=== PATIENT | female | born 1965 | race Caucasian/White ===

== ENCOUNTER 2016-05-21 15:45 | Emergency (ER) | payer MEDICARE, MEDICAID ==
[~2016-05-21] VITALS: Ht 154.9 cm; Wt 85.7 kg
[~2016-05-21 15:45] MED LIST: AEROSOL THERAPY1 DEV; ALBUTEROL1.25 MG/3 IH; AMOXICILLIN 50500 MG PO; ATARAX 25MG25 MG/TAB PO; ATARAX50 MG PO; ATIVAN 0.50.5 MG/TAB PO; BACTRIM DS 8001 TAB PO; CARAFATE 1GM1 G PO; CEPHALEXIN500 M1 PO; CIPRO 500MG TA500 MG PO; CLARITIN 1010 MG/TAB PO; COLACE 100100 MG/CAP PO; COMPAZINE 110 MG/TAB PO; COZAAR 25MG25 MG/TAB PO; COZAAR 50MG50 MG/TAB PO; CREON 120000 U-1 ECC PO; CYMBALTA 30MG30 MG PO; ESTROVEN PO; FARXIGA10 PO; FLEXERIL 1010 MG/TAB PO; FLOVENT 44MCG I13 GM IH; GLUCOPHAGE XR500 M1 PO; GLUCOTROL 5M5 MG/TAB PO; GLUCOVANCE 2.51 TAB PO; JANUVIA50 MG PO; KEPPRA 500MG500 MG PO; LAXATIVE FOR WOM5 MG PO; LEVEMIR100 U/ML SQ; LINZESS290CAP PO; LOFIBRA160 MG PO; LOFIBRA54 MG PO; LYRICA 150MG C150 MG PO; MIRAPEX0.5 MG PO; MORPHINE 1515 MG/TAB PO; MS CONTIN 115 MG/TAB PO; MS CONTIN 330 MG/TAB PO; NAPROSYN500 MG PO; NEXIUM 40MG40 MG PO; NORCO 325 MG-101 TAB PO; NORCO 325 MG-51 TAB PO; NORCO 325 MG-7.1 TAB PO; PAMELOR50 MG PO; PHENERGAN 25 TA25 MG PO; PHENERGAN25 MG RC; PREMARIN 0.9MG0.9 MG PO; PRISTIQ100 MG PO; PROVENTIL0.09 MG/A1 IH; SINGULAIR 110 MG/TAB PO; TOPROL XL 50MG50 MG PO; ULTRAM 50MG TAB50 MG PO; VITAMIN D32000 IU PO; WELCHOL 625MG625 MG PO; ZOCOR 10MG10 MG PO; ZOFRAN 4MG T4 MG/TAB PO; ZYPREXA10 MG PO; ZYPREXA20 MG PO; [UNRECOGNIZED DRUG - CODE] PO
[2016-05-21 15:50] VITALS: BP 142/86; TEMP 98.3
[2016-05-21 16:49] LABS: BASO % 0.1 % (0.0-2.0); GRAN # 5.4 (1.4-6.5); GRAN % 65.6 % (42.2-75.2); HEMATOCRIT 37.4 % (37.0-47.0); HEMOGLOBIN 11.6 g/dl (12.5-16.0); LYMPH # 2.2 (1.2-3.4); LYMPH % 26.4 % (20.0-51.0); MEAN CELL VOLUME 72 fl (80.0-100.0); MEAN CORPUSCULAR HEMOGLOBIN 22 pg (27.0-31.0); MEAN CORPUSCULAR HGB CONC 31 g/dl (33.0-37.0); MEAN PLATELET VOLUME 9.4 fl (7.4-10.4); MONO # 0.6 (0.1-0.6); MONO % 7.3 % (1.7-9.3); PLATELET COUNT 245 K/mm3 (130-400); WHITE BLOOD COUNT 8.3 K/mm3 (4.8-10.8)
[2016-05-21 16:56] LABS: PH 7 (5-8); SQUAMOUS EPITHELIAL None Seen /hpf; URINE APPEARANCE Clear; URINE BACTERIA Rare /hpf; URINE BILIRUBIN Negative (NEGATIVE); URINE BLOOD Negative (NEGATIVE); URINE COLOR Yellow; URINE GLUCOSE 3+ (NEGATIVE); URINE KETONE Negative (NEGATIVE); URINE RBC 0-2 /hpf; URINE UROBILINOGEN Negative (NEGATIVE); URINE WBC 0-2 /hpf
[2016-05-21 17:00] LABS: ADJUSTED CALCIUM 10.6 mg/dL (8.4-10.2); ALBUMIN 4.1 gm/dL (3.5-5.0); BILIRUBIN,TOTAL 0.6 mg/dL (0.0-1.0); C-REACTIVE PROTEIN 2.6 mg/dL (0.0-0.9); CALCIUM 10.7 mg/dL (8.4-10.2); CREATININE, serum 0.91 mg/dL (0.52-1.25); POTASSIUM 3.9 mmol/L (3.4-5.0); TOTAL PROTEIN 7.7 gm/dL (6.4-8.2)
[2016-05-21] MEDS ORDERED: NORCO 325 MG-51 TAB PO (17:48)
[2016-05-21] MEDS ORDERED: CLEOCIN HCL300 MG PO (17:48)
[2016-05-21 19:02] VITALS: PULSE 80
[2016-05-24] MEDS ORDERED: SEPTRA DS 8001 TAB PO (10:49)
== END 2016-05-21 19:04 | disposition home or self-care (01) ==
LOC: COL.ER 15:45
PROVIDERS: Nurse Practitioner
DX: L03.317 Cellulitis of buttock (principal)
CPT/HCPCS: J2270

== ENCOUNTER 2016-05-26 17:17 | Emergency (ER) | payer MEDICARE, MEDICAID ==
[~2016-05-26] VITALS: Ht 157.5 cm; Wt 86.4 kg
[~2016-05-26 17:17] MED LIST changes: +CLEOCIN HCL300 MG PO; +SEPTRA DS 8001 TAB PO
[2016-05-26 17:22] VITALS: BP 133/87; PULSE 83; TEMP 97.6
[2016-05-26] MEDS ORDERED: NORCO 325 MG-51 TAB PO (18:50)
== END 2016-05-26 19:05 | disposition home or self-care (01) ==
LOC: COL.ER 17:17
DX: G89.18 Other acute postprocedural pain (principal); Z48.817 Encounter for surgical aftercare following surgery on the skin and subcutaneous tissue; E11.9 Type 2 diabetes mellitus without complications; I10 Essential (primary) hypertension; F17.210 Nicotine dependence, cigarettes, uncomplicated

== ENCOUNTER → 2016-05-30 | Outpatient (CLI) | payer MEDICARE, MEDICAID ==
[~2016-05-30] MED LIST changes: +AVINZA60 MG PO; +PERCOCET 325 MG1 TA2 PO; +PREDNISONE20 MG PO
== END ==
LOC: WCC 10:38
DX: L98.499 Non-pressure chronic ulcer of skin of other sites with unspecified severity (principal); S31.819A Unspecified open wound of right buttock, initial encounter
CPT/HCPCS: 17717; 27517; A6207; A6212; G0463

== ENCOUNTER → 2016-05-31 | Emergency (ER) | payer MEDICARE, MEDICAID ==
[~2016-05-31] VITALS: Ht 154.9 cm; Wt 86.4 kg
[2016-05-31 18:33] VITALS: TEMP 97.7
[2016-05-31 19:30] LABS: GRAN # 7.2 (1.4-6.5); GRAN % 69.2 % (42.2-75.2); HEMATOCRIT 38.1 % (37.0-47.0); LYMPH # 2.6 (1.2-3.4); LYMPH % 24.7 % (20.0-51.0); MEAN CELL VOLUME 71 fl (80.0-100.0); MEAN CORPUSCULAR HEMOGLOBIN 22 pg (27.0-31.0); MEAN CORPUSCULAR HGB CONC 31 g/dl (33.0-37.0); MEAN PLATELET VOLUME 9.2 fl (7.4-10.4); MONO # 0.5 (0.1-0.6); PLATELET COUNT 269 K/mm3 (130-400); RED BLOOD COUNT 5.35 M/mm3 (4.10-5.30); REDCELL DISTRIBUTION WIDTH-CV 15.9 % (11.5-14.5); WHITE BLOOD COUNT 10.4 K/mm3 (4.8-10.8)
[2016-05-31 19:31] LABS: HEMOGLOBIN 11.9 g/dl (12.5-16.0)
[2016-05-31 19:32] LABS: CALCIUM 10.3 mg/dL (8.4-10.2); CREATININE, serum 0.83 mg/dL (0.52-1.25); POTASSIUM 4.6 mmol/L (3.4-5.0)
[2016-05-31 19:56] VITALS: BP 158/77; PULSE 89
== END | disposition home or self-care (01) ==
LOC: COL.ER 18:27
PROVIDERS: Emergency Medicine
DX: L29.9 Pruritus, unspecified (principal); T37.0X5A Adverse effect of sulfonamides, initial encounter
CPT/HCPCS: J1200; J7512

== ENCOUNTER → 2016-06-23 | Outpatient (CLI) | payer MEDICARE, MEDICAID | LOC: WCC 06-06 10:05 | DX: S31.819A Unspecified open wound of right buttock, initial encounter (principal); L98.499 Non-pressure chronic ulcer of skin of other sites with unspecified severity | CPT/HCPCS: 17717; 27510; A6197; A6212; G0463 ==

== ENCOUNTER → 2016-07-14 | Outpatient (CLI) | payer MEDICARE, MEDICAID | LOC: WCC 07-07 14:55 | DX: S31.809A Unspecified open wound of unspecified buttock, initial encounter (principal); S41.101A Unspecified open wound of right upper arm, initial encounter; S41.102A Unspecified open wound of left upper arm, initial encounter | CPT/HCPCS: 17717; 27514; A6212; G0463 ==

== ENCOUNTER → 2016-07-21 | Outpatient (CLI) | payer MEDICARE, MEDICAID | LOC: WCC 08:39 | DX: S51.801A Unspecified open wound of right forearm, initial encounter (principal); S31.809A Unspecified open wound of unspecified buttock, initial encounter | CPT/HCPCS: 17717; 27514; A6212; G0463 ==

== ENCOUNTER 2016-08-02 20:26 | Emergency (ER) | payer MEDICARE, MEDICAID ==
[~2016-08-02] VITALS: Ht 154.9 cm; Wt 81.4 kg
[~2016-08-02 20:26] MED LIST changes: -AVINZA60 MG PO; -PERCOCET 325 MG1 TA2 PO; -PREDNISONE20 MG PO
[2016-08-02 20:29] VITALS: TEMP 98.2
[2016-08-02 21:47] VITALS: BP 138/89; PULSE 75
== END 2016-08-02 21:50 | disposition home or self-care (01) ==
LOC: COL.ER 20:26
DX: G43.909 Migraine, unspecified, not intractable, without status migrainosus (principal); E11.9 Type 2 diabetes mellitus without complications; Z79.4 Long term (current) use of insulin
CPT/HCPCS: J1200; J2765

== ENCOUNTER → 2016-08-13 | Outpatient (CLI) | payer MEDICARE, MEDICAID ==
[~2016-08-13] MED LIST changes: +AVINZA60 MG PO; +PERCOCET 325 MG1 TA2 PO; +PREDNISONE20 MG PO
== END ==
LOC: WCC 07-28 12:01
DX: L98.419 Non-pressure chronic ulcer of buttock with unspecified severity (principal); L98.499 Non-pressure chronic ulcer of skin of other sites with unspecified severity
CPT/HCPCS: 17713; 17717; A6206; A6212; G0463

== ENCOUNTER 2016-09-15 16:43 | Emergency (ER) | payer MEDICARE, MEDICAID ==
[~2016-09-15] VITALS: Ht 157.5 cm; Wt 83.6 kg
[~2016-09-15 16:43] MED LIST changes: -AVINZA60 MG PO; -PERCOCET 325 MG1 TA2 PO; -PREDNISONE20 MG PO
[2016-09-15 16:57] VITALS: BP 149/87; TEMP 97.7
[2016-09-15 17:34] VITALS: PULSE 80
== END 2016-09-15 17:34 | disposition home or self-care (01) ==
LOC: COL.ER 16:43
DX: M25.561 Pain in right knee (principal); E11.9 Type 2 diabetes mellitus without complications; I10 Essential (primary) hypertension; J45.909 Unspecified asthma, uncomplicated; G43.909 Migraine, unspecified, not intractable, without status migrainosus; Z87.891 Personal history of nicotine dependence; Z79.4 Long term (current) use of insulin

== ENCOUNTER → 2016-09-15 | Outpatient (CLI) | payer MEDICARE, MEDICAID | LOC: WCC 10:18 | DX: L98.499 Non-pressure chronic ulcer of skin of other sites with unspecified severity (principal) | CPT/HCPCS: G0463 ==

== ENCOUNTER 2016-09-20 18:57 | Emergency (ER) | payer MEDICARE, MEDICAID ==
[~2016-09-20] VITALS: Ht 157.5 cm; Wt 81.8 kg
[2016-09-20 19:18] VITALS: TEMP 99.4
[2016-09-20 20:58] VITALS: BP 143/89; PULSE 76
== END 2016-09-20 21:00 | disposition home or self-care (01) ==
LOC: COL.ER 18:57
DX: G43.909 Migraine, unspecified, not intractable, without status migrainosus (principal); E11.9 Type 2 diabetes mellitus without complications; Z79.4 Long term (current) use of insulin; I10 Essential (primary) hypertension; Z87.891 Personal history of nicotine dependence; G89.29 Other chronic pain
CPT/HCPCS: J1200; J2550

== ENCOUNTER 2016-09-22 20:25 | Emergency (ER) | payer OTHER, MEDICARE, MEDICAID ==
[~2016-09-22] VITALS: Ht 157.5 cm; Wt 81.8 kg
[2016-09-22 20:28] VITALS: BP 162/89; TEMP 98.4
[2016-09-22] MEDS ORDERED: NORCO 325 MG-51 TAB PO (22:09)
[2016-09-22 23:04] VITALS: PULSE 82
== END 2016-09-22 23:05 | disposition home or self-care (01) ==
LOC: COL.ER 20:25
DX: S20.211A Contusion of right front wall of thorax, initial encounter (principal); V48.5XXA Car driver injured in noncollision transport accident in traffic accident, initial encounter; Y92.410 Unspecified street and highway as the place of occurrence of the external cause; I10 Essential (primary) hypertension; E11.9 Type 2 diabetes mellitus without complications; J44.9 Chronic obstructive pulmonary disease, unspecified; Z87.891 Personal history of nicotine dependence; Z79.84 Long term (current) use of oral hypoglycemic drugs

== ENCOUNTER 2016-09-26 18:50 | Emergency (ER) | payer OTHER, MEDICARE, MEDICAID ==
[~2016-09-26] VITALS: Ht 157.5 cm; Wt 81.4 kg
[2016-09-26 18:54] VITALS: TEMP 97.9
[2016-09-26 20:42] LABS: BASO % 0.1 % (0.0-2.0); GRAN # 5.9 (1.4-6.5); HEMATOCRIT 42.7 % (37.0-47.0); LYMPH % 31.9 % (20.0-51.0); MEAN CORPUSCULAR HEMOGLOBIN 21 pg (27.0-31.0); MEAN CORPUSCULAR HGB CONC 30 g/dl (33.0-37.0); MONO # 0.4 (0.1-0.6); MONO % 4.6 % (1.7-9.3); PLATELET COUNT 266 K/mm3 (130-400); REDCELL DISTRIBUTION WIDTH-CV 18.5 % (11.5-14.5); WHITE BLOOD COUNT 9.5 K/mm3 (4.8-10.8)
[2016-09-26 20:53] LABS: MEAN CELL VOLUME 70 fl (80.0-100.0)
[2016-09-26 20:54] LABS: ADJUSTED CALCIUM 9.9 mg/dL (8.4-10.2); ALBUMIN 4.5 gm/dL (3.5-5.0); BILIRUBIN,TOTAL 0.7 mg/dL (0.0-1.0); CALCIUM 10.3 mg/dL (8.4-10.2); CREATININE, serum 0.87 mg/dL (0.52-1.25); POTASSIUM 4.1 mmol/L (3.4-5.0); TOTAL PROTEIN 7.7 gm/dL (6.4-8.2)
[2016-09-26] MEDS ORDERED: ULTRAM 50MG TAB50 MG PO (21:06)
[2016-09-26] MEDS ORDERED: PERCOCET 325 MG1 TA2 PO (21:06)
[2016-09-26 21:46] VITALS: BP 144/82; PULSE 71
== END 2016-09-26 21:47 | disposition home or self-care (01) ==
LOC: COL.ER 18:50
PROVIDERS: Emergency Medicine
DX: R10.84 Generalized abdominal pain (principal); R07.89 Other chest pain; R07.1 Chest pain on breathing; V47.5XXD Car driver injured in collision with fixed or stationary object in traffic accident, subsequent encounter; E11.9 Type 2 diabetes mellitus without complications; K21.9 Gastro-esophageal reflux disease without esophagitis; Z87.891 Personal history of nicotine dependence; Z79.84 Long term (current) use of oral hypoglycemic drugs
CPT/HCPCS: Q9967

== ENCOUNTER 2016-10-01 20:08 | Emergency (ER) | payer OTHER, MEDICARE, MEDICAID ==
[~2016-10-01] VITALS: Ht 160 cm; Wt 81.8 kg
[~2016-10-01 20:08] MED LIST changes: +PERCOCET 325 MG1 TA2 PO
[2016-10-01 20:10] VITALS: BP 134/82; PULSE 92; TEMP 98
== END 2016-10-01 20:57 | disposition home or self-care (01) ==
LOC: COL.ER 20:08
DX: R07.89 Other chest pain (principal); V49.60XD Unspecified car occupant injured in collision with unspecified motor vehicles in traffic accident, subsequent encounter; I10 Essential (primary) hypertension; E11.9 Type 2 diabetes mellitus without complications; Z79.4 Long term (current) use of insulin; F32.9 Major depressive disorder, single episode, unspecified; G89.29 Other chronic pain; Z79.891 Long term (current) use of opiate analgesic

== ENCOUNTER → 2016-10-03 | Outpatient (CLI) | payer MEDICARE, MEDICAID ==
[~2016-10-03] MED LIST changes: +AVINZA60 MG PO; +PREDNISONE20 MG PO
== END ==
LOC: WCC 09:44
DX: S51.002A Unspecified open wound of left elbow, initial encounter (principal); E66.9 Obesity, unspecified
CPT/HCPCS: 27514; G0463

== ENCOUNTER 2016-10-05 17:45 | Emergency (ER) | payer MEDICARE, MEDICAID ==
[~2016-10-05] VITALS: Ht 157.5 cm; Wt 81.4 kg
[~2016-10-05 17:45] MED LIST changes: -AVINZA60 MG PO; -PREDNISONE20 MG PO
[2016-10-05 18:09] VITALS: BP 132/96; TEMP 98.1
[2016-10-05 19:08] VITALS: PULSE 86
== END 2016-10-05 19:15 | disposition home or self-care (01) ==
LOC: COL.ER 17:45
DX: R07.89 Other chest pain (principal)

== ENCOUNTER 2016-11-02 00:36 | Emergency (ER) | payer MEDICARE, MEDICAID ==
[~2016-11-02] VITALS: Ht 157.5 cm; Wt 81.8 kg
[2016-11-02 00:39] VITALS: BP 150/95; PULSE 95; TEMP 98
[2016-11-02] MEDS ORDERED: AVINZA60 MG PO (00:54)
== END 2016-11-02 01:33 | disposition home or self-care (01) ==
LOC: COL.ER 00:36
DX: S20.211A Contusion of right front wall of thorax, initial encounter (principal); W18.2XXA Fall in (into) shower or empty bathtub, initial encounter; Z91.81 History of falling; Y92.002 Bathroom of unspecified non-institutional (private) residence as the place of occurrence of the external cause
CPT/HCPCS: A9284

== ENCOUNTER → 2016-11-24 | Outpatient (CLI) | payer MEDICARE, MEDICAID ==
[~2016-11-24] MED LIST changes: +AVINZA60 MG PO; +PREDNISONE20 MG PO
== END ==
LOC: WCC 10-24 08:58
DX: L98.499 Non-pressure chronic ulcer of skin of other sites with unspecified severity (principal); F41.9 Anxiety disorder, unspecified
CPT/HCPCS: 17717; A6212; G0463

== ENCOUNTER 2016-11-27 02:21 | Emergency (ER) | payer MEDICARE, MEDICAID ==
[~2016-11-27] VITALS: Ht 157.5 cm; Wt 82.7 kg
[~2016-11-27 02:21] MED LIST changes: -PREDNISONE20 MG PO
[2016-11-27 02:22] VITALS: TEMP 97.8
[2016-11-27] MEDS ORDERED: ULTRAM 50MG TAB50 MG PO (03:06)
[2016-11-27] MEDS ORDERED: PHENERGAN 25 TA25 MG PO (03:06)
[2016-11-27 03:09] LABS: GRAN # 2.7 (1.4-6.5); GRAN % 51.9 % (42.2-75.2); LYMPH % 38.7 % (20.0-51.0); MEAN CELL VOLUME 72 fl (80.0-100.0); MEAN CORPUSCULAR HGB CONC 30 g/dl (33.0-37.0); MEAN PLATELET VOLUME 9.4 fl (7.4-10.4); MONO # 0.4 (0.1-0.6); MONO % 8.4 % (1.7-9.3); PLATELET COUNT 196 K/mm3 (130-400); REDCELL DISTRIBUTION WIDTH-CV 17.2 % (11.5-14.5); WHITE BLOOD COUNT 5.2 K/mm3 (4.8-10.8)
[2016-11-27 03:12] LABS: PH 7 (5-8); SQUAMOUS EPITHELIAL 0-2 /hpf; URINE APPEARANCE Clear; URINE BACTERIA Rare /hpf; URINE BILIRUBIN Negative (NEGATIVE); URINE BLOOD Negative (NEGATIVE); URINE COLOR Yellow; URINE GLUCOSE 3+ (NEGATIVE); URINE KETONE Negative (NEGATIVE); URINE RBC 0-2 /hpf; URINE UROBILINOGEN Negative (NEGATIVE); URINE WBC 0-2 /hpf
[2016-11-27 03:13] LABS: HEMATOCRIT 36.1 % (37.0-47.0); HEMOGLOBIN 10.8 g/dl (12.5-16.0); MEAN CORPUSCULAR HEMOGLOBIN 22 pg (27.0-31.0)
[2016-11-27 03:20] LABS: ADJUSTED CALCIUM 9.4 mg/dL (8.4-10.2); ALBUMIN 3.9 gm/dL (3.5-5.0); BILIRUBIN,TOTAL 0.4 mg/dL (0.0-1.0); CALCIUM 9.3 mg/dL (8.4-10.2); CREATININE, serum 1.1 mg/dL (0.52-1.25); POTASSIUM 4.2 mmol/L (3.4-5.0); TOTAL PROTEIN 6.7 gm/dL (6.4-8.2)
[2016-11-27 03:58] VITALS: BP 111/63; PULSE 70
== END 2016-11-27 04:15 | disposition home or self-care (01) ==
LOC: COL.ER 02:21
PROVIDERS: Emergency Medicine
DX: R10.11 Right upper quadrant pain (principal); R10.13 Epigastric pain; R63.0 Anorexia; R11.0 Nausea; K21.9 Gastro-esophageal reflux disease without esophagitis; J44.9 Chronic obstructive pulmonary disease, unspecified; E11.9 Type 2 diabetes mellitus without complications; I10 Essential (primary) hypertension; Z79.4 Long term (current) use of insulin; Z90.49 Acquired absence of other specified parts of digestive tract
CPT/HCPCS: C9113; J1170; J2765; J7030

== ENCOUNTER 2016-12-05 02:57 | Emergency (ER) | payer MEDICARE, MEDICAID ==
[~2016-12-05] VITALS: Ht 157.5 cm; Wt 84.1 kg
[2016-12-05 03:08] VITALS: BP 151/101; TEMP 97.9
[2016-12-05 03:39] LABS: MEAN CELL VOLUME 70 fl (80.0-100.0); MEAN CORPUSCULAR HEMOGLOBIN 22 pg (27.0-31.0); MEAN CORPUSCULAR HGB CONC 31 g/dl (33.0-37.0); MEAN PLATELET VOLUME 9.2 fl (7.4-10.4); PLATELET COUNT 197 K/mm3 (130-400); RED BLOOD COUNT 5.41 M/mm3 (4.10-5.30); REDCELL DISTRIBUTION WIDTH-CV 16.7 % (11.5-14.5); WHITE BLOOD COUNT 8.9 K/mm3 (4.8-10.8)
[2016-12-05 03:40] LABS: HEMOGLOBIN 11.8 g/dl (12.5-16.0)
[2016-12-05 03:41] LABS: ADD PATHOLOGY DIFF REVIEW NO
[2016-12-05 03:50] LABS: ADJUSTED CALCIUM 9.6 mg/dL (8.4-10.2); ALANINE AMINOTRANSFERASE 28 U/L (9-52); ALBUMIN 4.2 gm/dL (3.5-5.0); ALKALINE PHOSPHATASE 77 U/L (50-136); ANION GAP 12 mmol/L (7-16); BILIRUBIN,TOTAL 0.5 mg/dL (0.0-1.0); BLOOD UREA NITROGEN 14 mg/dL (7-17); CALCIUM 9.8 mg/dL (8.4-10.2); CARBON DIOXIDE 20 mmol/L (22-30); CHLORIDE 106 mmol/L (98-107); CREATININE, serum 0.82 mg/dL (0.52-1.25); GLUCOSE 198 mg/dL (74-106); LIPASE 462 U/L (23-300); POTASSIUM 4.1 mmol/L (3.4-5.0); SODIUM 138 mmol/L (137-145); TOTAL PROTEIN 7.2 gm/dL (6.4-8.2)
[2016-12-05 03:51] LABS: C-REACTIVE PROTEIN < 0.5 mg/dL (0.0-0.9)
[2016-12-05 03:53] LABS: BAND 5 % (0-10); METAMYELOCYTE 1 % (0-0); NEUTROPHILS 68 % (42.0-75.2); POIKILOCYTOSIS 1+; POLYCHROMASIA 1+; TOTAL CELLS COUNTED 100
[2016-12-05 03:54] LABS: ANISOCYTOSIS 1+
[2016-12-05 04:31] LABS: PH 6 (5-8); SQUAMOUS EPITHELIAL 0-2 /hpf; URINE APPEARANCE Clear; URINE BACTERIA Rare /hpf; URINE BILIRUBIN Negative (NEGATIVE); URINE BLOOD Negative (NEGATIVE); URINE COLOR Yellow; URINE GLUCOSE 1+ (NEGATIVE); URINE KETONE Negative (NEGATIVE); URINE RBC 0-2 /hpf; URINE UROBILINOGEN Negative (NEGATIVE)
[2016-12-05 06:28] VITALS: PULSE 82
[2016-12-05] MEDS ORDERED: NORCO 325 MG-51 TAB PO (18:40)
== END 2016-12-05 06:29 | disposition home or self-care (01) ==
LOC: COL.ER 02:57
PROVIDERS: Emergency Medicine
DX: K85.90 Acute pancreatitis without necrosis or infection, unspecified (principal); E10.8 Type 1 diabetes mellitus with unspecified complications; Z79.4 Long term (current) use of insulin
CPT/HCPCS: J1170; J2550; J7030

== ENCOUNTER 2016-12-05 17:17 | Emergency (ER) | payer MEDICARE, MEDICAID ==
[~2016-12-05] VITALS: Ht 157.5 cm; Wt 83.6 kg
[2016-12-05 18:09] LABS: HEMATOCRIT 40.3 % (37.0-47.0); MEAN CELL VOLUME 71 fl (80.0-100.0); MEAN CORPUSCULAR HEMOGLOBIN 21 pg (27.0-31.0); MEAN CORPUSCULAR HGB CONC 30 g/dl (33.0-37.0); MEAN PLATELET VOLUME 9.7 fl (7.4-10.4); PLATELET COUNT 211 K/mm3 (130-400); RED BLOOD COUNT 5.69 M/mm3 (4.10-5.30); REDCELL DISTRIBUTION WIDTH-CV 17.2 % (11.5-14.5); WHITE BLOOD COUNT 7.9 K/mm3 (4.8-10.8)
[2016-12-05 18:14] LABS: ADD PATHOLOGY DIFF REVIEW NO
[2016-12-05 18:21] LABS: ADJUSTED CALCIUM 9.4 mg/dL (8.4-10.2); ALBUMIN 4.2 gm/dL (3.5-5.0); BILIRUBIN,TOTAL 0.4 mg/dL (0.0-1.0); CALCIUM 9.6 mg/dL (8.4-10.2); CREATININE, serum 0.88 mg/dL (0.52-1.25); POTASSIUM 3.8 mmol/L (3.4-5.0); TOTAL PROTEIN 7.3 gm/dL (6.4-8.2)
[2016-12-05 18:23] LABS: C-REACTIVE PROTEIN 0.5 mg/dL (0.0-0.9)
[2016-12-05] MEDS ORDERED: NORCO 325 MG-51 TAB PO (18:40)
[2016-12-05 18:43] LABS: BAND 1 % (0-10); METAMYELOCYTE 1 % (0-0); NEUTROPHILS 72 % (42.0-75.2); PLATELET ESTIMATE NORMAL (NORMAL); TOTAL CELLS COUNTED 100
[2016-12-05 18:46] LABS: ANISOCYTOSIS 2+; HYPOCHROMIA 1+
[2016-12-05 19:00] VITALS: BP 122/66; PULSE 79; TEMP 96.9
== END 2016-12-05 19:01 | disposition home or self-care (01) ==
LOC: COL.ER 17:17
PROVIDERS: Emergency Medicine
DX: R10.13 Epigastric pain (principal); R79.89 Other specified abnormal findings of blood chemistry; E11.9 Type 2 diabetes mellitus without complications; I10 Essential (primary) hypertension; J44.9 Chronic obstructive pulmonary disease, unspecified; G89.29 Other chronic pain; Z79.4 Long term (current) use of insulin; R19.7 Diarrhea, unspecified
CPT/HCPCS: J1170; J2550; J7030

== ENCOUNTER 2016-12-08 01:01 | Emergency (ER) | payer MEDICARE, MEDICAID ==
[~2016-12-08] VITALS: Ht 157.5 cm; Wt 84.1 kg
[2016-12-08 01:06] VITALS: BP 148/72; TEMP 97.6
[2016-12-08] MEDS ORDERED: PREDNISONE20 MG PO (02:25)
[2016-12-08 02:39] VITALS: PULSE 76
== END 2016-12-08 02:39 | disposition home or self-care (01) ==
LOC: COL.ER 01:01
DX: T63.481A Toxic effect of venom of other arthropod, accidental (unintentional), initial encounter (principal); L23.89 Allergic contact dermatitis due to other agents; E11.9 Type 2 diabetes mellitus without complications; I10 Essential (primary) hypertension; Z79.4 Long term (current) use of insulin
CPT/HCPCS: J7512

== ENCOUNTER 2016-12-26 15:55 | Emergency (ER) | payer MEDICARE, MEDICAID ==
[~2016-12-26] VITALS: Ht 157.5 cm; Wt 81.8 kg
[~2016-12-26 15:55] MED LIST changes: +PREDNISONE20 MG PO
[2016-12-26 15:58] VITALS: BP 159/78; TEMP 98.2
[2016-12-26 16:36] LABS: ADD PATHOLOGY DIFF REVIEW NO
[2016-12-26 16:40] LABS: MEAN CELL VOLUME 70 fl (80.0-100.0); MEAN CORPUSCULAR HGB CONC 31 g/dl (33.0-37.0); MEAN PLATELET VOLUME 8.9 fl (7.4-10.4); PLATELET COUNT 206 K/mm3 (130-400); RED BLOOD COUNT 4.74 M/mm3 (4.10-5.30); REDCELL DISTRIBUTION WIDTH-CV 16.3 % (11.5-14.5)
[2016-12-26 16:42] LABS: HEMATOCRIT 33.3 % (37.0-47.0); HEMOGLOBIN 10.2 g/dl (12.5-16.0); MEAN CORPUSCULAR HEMOGLOBIN 22 pg (27.0-31.0)
[2016-12-26 16:52] LABS: ADJUSTED CALCIUM 9.5 mg/dL (8.4-10.2); ALBUMIN 3.6 gm/dL (3.5-5.0); BILIRUBIN,TOTAL 0.4 mg/dL (0.0-1.0); CALCIUM 9.2 mg/dL (8.4-10.2); CREATININE, serum 0.85 mg/dL (0.52-1.25); POTASSIUM 3.4 mmol/L (3.4-5.0); TOTAL PROTEIN 6.3 gm/dL (6.4-8.2)
[2016-12-26 17:13] LABS: ANISOCYTOSIS 1+; BAND 11 % (0-10); METAMYELOCYTE 1 % (0-0); MICROCYTOSIS 2+; MYELOCYTE 1 % (0-0); NEUTROPHILS 55 % (42.0-75.2); TOTAL CELLS COUNTED 100
[2016-12-26 17:27] VITALS: PULSE 68
[2016-12-27] MEDS ORDERED: PHENERGAN 25 TA25 MG PO (16:25)
== END 2016-12-26 17:28 | disposition home or self-care (01) ==
LOC: COL.ER 15:55
PROVIDERS: Family Medicine
DX: R10.11 Right upper quadrant pain (principal); R10.13 Epigastric pain; G89.29 Other chronic pain; E11.9 Type 2 diabetes mellitus without complications; I10 Essential (primary) hypertension; J44.9 Chronic obstructive pulmonary disease, unspecified; Z79.4 Long term (current) use of insulin
CPT/HCPCS: J1170; J2550

== ENCOUNTER 2016-12-27 15:26 | Emergency (ER) | payer MEDICARE, MEDICAID ==
[~2016-12-27] VITALS: Ht 157.5 cm; Wt 81.8 kg
[2016-12-27 15:29] VITALS: BP 151/83; TEMP 99.1
[2016-12-27 16:12] LABS: GRAN # 4.1 (1.4-6.5); GRAN % 63.3 % (42.2-75.2); LYMPH # 1.9 (1.2-3.4); LYMPH % 29.9 % (20.0-51.0); MEAN CELL VOLUME 70 fl (80.0-100.0); MEAN CORPUSCULAR HGB CONC 31 g/dl (33.0-37.0); MEAN PLATELET VOLUME 8.9 fl (7.4-10.4); MONO # 0.4 (0.1-0.6); PLATELET COUNT 212 K/mm3 (130-400); RED BLOOD COUNT 4.97 M/mm3 (4.10-5.30); REDCELL DISTRIBUTION WIDTH-CV 16.7 % (11.5-14.5); WHITE BLOOD COUNT 6.5 K/mm3 (4.8-10.8)
[2016-12-27 16:19] LABS: ADJUSTED CALCIUM 9.5 mg/dL (8.4-10.2); ALBUMIN 3.7 gm/dL (3.5-5.0); BILIRUBIN,TOTAL 0.4 mg/dL (0.0-1.0); C-REACTIVE PROTEIN 0.9 mg/dL (0.0-0.9); CALCIUM 9.3 mg/dL (8.4-10.2); CREATININE, serum 0.96 mg/dL (0.52-1.25); HEMATOCRIT 34.6 % (37.0-47.0); HEMOGLOBIN 10.6 g/dl (12.5-16.0); MEAN CORPUSCULAR HEMOGLOBIN 21 pg (27.0-31.0); POTASSIUM 3.5 mmol/L (3.4-5.0); TOTAL PROTEIN 6.5 gm/dL (6.4-8.2)
[2016-12-27] MEDS ORDERED: PHENERGAN 25 TA25 MG PO (16:25)
[2016-12-27 17:08] VITALS: PULSE 79
== END 2016-12-27 17:09 | disposition home or self-care (01) ==
LOC: COL.ER 15:26
PROVIDERS: Physician Assistant
DX: R10.13 Epigastric pain (principal); E11.9 Type 2 diabetes mellitus without complications; Z79.4 Long term (current) use of insulin; I10 Essential (primary) hypertension; G89.29 Other chronic pain
CPT/HCPCS: J1170; J2550

== ENCOUNTER 2016-12-30 05:09 | Emergency (ER) | payer MEDICARE, MEDICAID ==
[~2016-12-30] VITALS: Ht 157.5 cm; Wt 84.0 kg
[2016-12-30 05:12] VITALS: TEMP 98.2
[2016-12-30 05:45] LABS: BASO % 0.1 % (0.0-2.0); GRAN # 5.5 (1.4-6.5); GRAN % 61.5 % (42.2-75.2); HEMATOCRIT 37.4 % (37.0-47.0); HEMOGLOBIN 11.1 g/dl (12.5-16.0); LYMPH # 2.9 (1.2-3.4); LYMPH % 32.5 % (20.0-51.0); MEAN CELL VOLUME 70 fl (80.0-100.0); MEAN CORPUSCULAR HEMOGLOBIN 21 pg (27.0-31.0); MEAN CORPUSCULAR HGB CONC 30 g/dl (33.0-37.0); MEAN PLATELET VOLUME 8.6 fl (7.4-10.4); MONO # 0.4 (0.1-0.6); MONO % 4.8 % (1.7-9.3); PLATELET COUNT 218 K/mm3 (130-400); RED BLOOD COUNT 5.38 M/mm3 (4.10-5.30); REDCELL DISTRIBUTION WIDTH-CV 16.5 % (11.5-14.5)
[2016-12-30 05:59] LABS: ADJUSTED CALCIUM 9.9 mg/dL (8.4-10.2); BILIRUBIN,TOTAL 0.4 mg/dL (0.0-1.0); CALCIUM 9.9 mg/dL (8.4-10.2); CREATININE, serum 0.88 mg/dL (0.52-1.25); POTASSIUM 4.1 mmol/L (3.4-5.0); TOTAL PROTEIN 6.9 gm/dL (6.4-8.2)
[2016-12-30 06:04] LABS: PH 6 (5-8); SQUAMOUS EPITHELIAL 0-2 /hpf; URINE APPEARANCE Clear; URINE BACTERIA None Seen /hpf; URINE BILIRUBIN Negative (NEGATIVE); URINE BLOOD Negative (NEGATIVE); URINE COLOR Yellow; URINE GLUCOSE 1+ (NEGATIVE); URINE KETONE Negative (NEGATIVE); URINE RBC 0-2 /hpf; URINE UROBILINOGEN Negative (NEGATIVE); URINE WBC 0-2 /hpf
[2016-12-30 06:55] VITALS: BP 158/98; PULSE 76
== END 2016-12-30 06:55 | disposition home or self-care (01) ==
LOC: COL.ER 05:09
PROVIDERS: Emergency Medicine
DX: R10.11 Right upper quadrant pain (principal); G89.29 Other chronic pain; E11.9 Type 2 diabetes mellitus without complications; Z79.4 Long term (current) use of insulin; I10 Essential (primary) hypertension; Z87.891 Personal history of nicotine dependence; K21.9 Gastro-esophageal reflux disease without esophagitis; E78.5 Hyperlipidemia, unspecified; J44.9 Chronic obstructive pulmonary disease, unspecified; G40.909 Epilepsy, unspecified, not intractable, without status epilepticus; E66.9 Obesity, unspecified; Z68.30 Body mass index [BMI] 30.0-30.9, adult
CPT/HCPCS: J3010

== ENCOUNTER 2017-01-01 00:03 | Emergency (ER) | payer MEDICARE, MEDICAID ==
[~2017-01-01] VITALS: Ht 157.5 cm; Wt 81.8 kg
[2017-01-01 00:09] VITALS: BP 138/73; TEMP 98
[2017-01-01 02:08] VITALS: PULSE 84
== END 2017-01-01 02:10 | disposition home or self-care (01) ==
LOC: COL.ER 00:03
DX: R10.11 Right upper quadrant pain (principal); E11.9 Type 2 diabetes mellitus without complications; I10 Essential (primary) hypertension; E78.5 Hyperlipidemia, unspecified; K21.9 Gastro-esophageal reflux disease without esophagitis; F32.9 Major depressive disorder, single episode, unspecified; J45.909 Unspecified asthma, uncomplicated; G43.909 Migraine, unspecified, not intractable, without status migrainosus; M54.9 Dorsalgia, unspecified; G89.29 Other chronic pain; Z79.4 Long term (current) use of insulin; Z79.84 Long term (current) use of oral hypoglycemic drugs; Z90.49 Acquired absence of other specified parts of digestive tract; Z90.710 Acquired absence of both cervix and uterus; Z87.891 Personal history of nicotine dependence
CPT/HCPCS: J1170; J2550

== ENCOUNTER 2017-01-02 07:01 | Day surgery (SDC) | payer MEDICARE, MEDICAID ==
[~2017-01-02] VITALS: Ht 152.4 cm; Wt 80.5 kg
[2017-01-02 08:11] VITALS: BP 129/94; PULSE 84; TEMP 97.4
[2017-01-02 09:35] VITALS: BP 135/95; PULSE 85; TEMP 98.1
[2017-01-02 09:50] VITALS: BP 126/93; PULSE 84
[2017-01-02 10:05] VITALS: BP 132/95; PULSE 82
[2017-01-02 10:20] VITALS: BP 124/88; PULSE 89
== END 2017-01-02 13:56 | disposition home or self-care (01) ==
LOC: SDCO 07:01
DX: K57.30 Diverticulosis of large intestine without perforation or abscess without bleeding (principal); K21.9 Gastro-esophageal reflux disease without esophagitis; K44.9 Diaphragmatic hernia without obstruction or gangrene; D50.9 Iron deficiency anemia, unspecified; K59.00 Constipation, unspecified; K85.90 Acute pancreatitis without necrosis or infection, unspecified; K31.84 Gastroparesis; F32.9 Major depressive disorder, single episode, unspecified; I10 Essential (primary) hypertension; E78.00 Pure hypercholesterolemia, unspecified; G43.909 Migraine, unspecified, not intractable, without status migrainosus; Z86.010 Personal history of colon polyps
CPT/HCPCS: J2250; J3010; J7030

== ENCOUNTER 2017-01-04 20:18 | Emergency (ER) | payer MEDICARE, MEDICAID ==
[~2017-01-04] VITALS: Ht 157.5 cm; Wt 81.0 kg
[2017-01-04 20:21] VITALS: TEMP 97.8
[2017-01-04 21:19] LABS: BASO % 0.2 % (0.0-2.0); GRAN # 4.1 (1.4-6.5); HEMATOCRIT 40.2 % (37.0-47.0); LYMPH # 1.6 (1.2-3.4); LYMPH % 24.5 % (20.0-51.0); MEAN CELL VOLUME 69 fl (80.0-100.0); MEAN CORPUSCULAR HEMOGLOBIN 21 pg (27.0-31.0); MEAN CORPUSCULAR HGB CONC 30 g/dl (33.0-37.0); MEAN PLATELET VOLUME 9.3 fl (7.4-10.4); MONO # 0.7 (0.1-0.6); MONO % 10.7 % (1.7-9.3); PLATELET COUNT 265 K/mm3 (130-400); RED BLOOD COUNT 5.81 M/mm3 (4.10-5.30); WHITE BLOOD COUNT 6.5 K/mm3 (4.8-10.8)
[2017-01-04 21:34] LABS: ALANINE AMINOTRANSFERASE 29 U/L (9-52); ALBUMIN 3.8 gm/dL (3.5-5.0); ALKALINE PHOSPHATASE 90 U/L (50-136); ANION GAP 15 mmol/L (7-16); BILIRUBIN,TOTAL 0.5 mg/dL (0.0-1.0); BLOOD UREA NITROGEN 16 mg/dL (7-17); CALCIUM 9.8 mg/dL (8.4-10.2); CARBON DIOXIDE 18 mmol/L (22-30); CHLORIDE 104 mmol/L (98-107); CREATININE, serum 0.82 mg/dL (0.52-1.25); GLUCOSE 174 mg/dL (74-106); LIPASE 767 U/L (23-300); POTASSIUM 3.9 mmol/L (3.4-5.0); SODIUM 137 mmol/L (137-145); TOTAL PROTEIN 6.9 gm/dL (6.4-8.2)
[2017-01-04 21:46] LABS: B-TYPE NATRIURETIC PEPTIDE 30 pg/mL (0-125); TROPONIN-I < 0.012 ng/mL (0.000-0.034)
[2017-01-04] MEDS ORDERED: ULTRAM 50MG TAB50 MG PO (23:44)
[2017-01-05 00:22] VITALS: BP 116/81; PULSE 79
== END 2017-01-05 00:30 | disposition home or self-care (01) ==
LOC: COL.ER 20:18
PROVIDERS: Emergency Medicine
DX: R07.9 Chest pain, unspecified (principal); R74.8 Abnormal levels of other serum enzymes; R11.0 Nausea; R00.2 Palpitations; R07.1 Chest pain on breathing; E11.9 Type 2 diabetes mellitus without complications; F32.9 Major depressive disorder, single episode, unspecified; E78.5 Hyperlipidemia, unspecified; I10 Essential (primary) hypertension; G89.29 Other chronic pain; R10.84 Generalized abdominal pain; Z79.4 Long term (current) use of insulin; F41.9 Anxiety disorder, unspecified
CPT/HCPCS: J1630; J2060; Q9967

== ENCOUNTER 2017-01-07 14:46 | Emergency (ER) | payer MEDICARE, MEDICAID ==
[~2017-01-07] VITALS: Ht 157.5 cm; Wt 79.5 kg
[2017-01-07 14:51] VITALS: BP 122/80; PULSE 88; TEMP 97.6
== END 2017-01-07 15:40 | disposition left against medical advice (07) ==
LOC: COL.ER 14:46
DX: R07.89 Other chest pain (principal)

== ENCOUNTER 2017-01-07 19:22 | Emergency (ER) | payer MEDICARE, MEDICAID ==
[~2017-01-07] VITALS: Ht 157.5 cm; Wt 80.4 kg
[2017-01-07 19:34] VITALS: BP 123/77; TEMP 98.5
[2017-01-07 20:20] LABS: HEMOGLOBIN 12.3 g/dl (12.5-16.0); MEAN CELL VOLUME 68 fl (80.0-100.0); MEAN CORPUSCULAR HEMOGLOBIN 21 pg (27.0-31.0); MEAN CORPUSCULAR HGB CONC 31 g/dl (33.0-37.0); MEAN PLATELET VOLUME 9.3 fl (7.4-10.4); PLATELET COUNT 261 K/mm3 (130-400); RED BLOOD COUNT 5.88 M/mm3 (4.10-5.30); REDCELL DISTRIBUTION WIDTH-CV 18.3 % (11.5-14.5); WHITE BLOOD COUNT 6.8 K/mm3 (4.8-10.8)
[2017-01-07 20:22] LABS: ADD PATHOLOGY DIFF REVIEW NO
[2017-01-07 20:33] LABS: ADJUSTED CALCIUM 10.2 mg/dL (8.4-10.2); ALANINE AMINOTRANSFERASE 22 U/L (9-52); ALBUMIN 3.8 gm/dL (3.5-5.0); ALKALINE PHOSPHATASE 96 U/L (50-136); ANION GAP 16 mmol/L (7-16); BILIRUBIN,TOTAL 0.4 mg/dL (0.0-1.0); BLOOD UREA NITROGEN 7 mg/dL (7-17); CARBON DIOXIDE 17 mmol/L (22-30); CHLORIDE 106 mmol/L (98-107); CREATININE, serum 0.87 mg/dL (0.52-1.25); GLUCOSE 234 mg/dL (74-106); POTASSIUM 3.9 mmol/L (3.4-5.0); SODIUM 138 mmol/L (137-145)
[2017-01-07 20:45] LABS: TROPONIN-I < 0.012 ng/mL (0.000-0.034)
[2017-01-07 20:56] LABS: BAND 3 % (0-10); BASOPHIL 2 % (0-2); NEUTROPHILS 61 % (42.0-75.2); TOTAL CELLS COUNTED 100
[2017-01-07 20:57] LABS: ANISOCYTOSIS 1+; HYPOCHROMIA 1+; MICROCYTOSIS 1+; POLYCHROMASIA 1+
[2017-01-07 21:59] VITALS: PULSE 92
== END 2017-01-07 21:50 | disposition home or self-care (01) ==
LOC: COL.ER 19:22
PROVIDERS: Nurse Practitioner
DX: R07.89 Other chest pain (principal); I10 Essential (primary) hypertension; E78.5 Hyperlipidemia, unspecified; E11.9 Type 2 diabetes mellitus without complications; J44.9 Chronic obstructive pulmonary disease, unspecified; G43.909 Migraine, unspecified, not intractable, without status migrainosus; G89.29 Other chronic pain; M54.9 Dorsalgia, unspecified; F32.9 Major depressive disorder, single episode, unspecified; Z87.891 Personal history of nicotine dependence; Z79.4 Long term (current) use of insulin; Z79.84 Long term (current) use of oral hypoglycemic drugs; Z90.710 Acquired absence of both cervix and uterus; Z90.49 Acquired absence of other specified parts of digestive tract; Z90.89 Acquired absence of other organs; Z98.890 Other specified postprocedural states

== ENCOUNTER 2017-01-17 21:01 | Emergency (ER) | payer MEDICARE, MEDICAID ==
[~2017-01-17] VITALS: Ht 157.5 cm; Wt 81.8 kg
[2017-01-17 21:04] VITALS: BP 162/83; TEMP 98.5
[2017-01-17 23:00] VITALS: PULSE 72
== END 2017-01-17 23:01 | disposition home or self-care (01) ==
LOC: COL.ER 21:01
DX: G43.909 Migraine, unspecified, not intractable, without status migrainosus (principal); E11.9 Type 2 diabetes mellitus without complications; F32.9 Major depressive disorder, single episode, unspecified; E78.5 Hyperlipidemia, unspecified; K21.9 Gastro-esophageal reflux disease without esophagitis; Z79.4 Long term (current) use of insulin; Z79.84 Long term (current) use of oral hypoglycemic drugs; Z87.891 Personal history of nicotine dependence
CPT/HCPCS: J2270; J2550

== ENCOUNTER 2017-01-29 15:28 | Emergency (ER) | payer MEDICARE, MEDICAID ==
[~2017-01-29] VITALS: Ht 157.5 cm; Wt 81.8 kg
[2017-01-29 15:30] VITALS: TEMP 97.5
[2017-01-29 16:22] LABS: GRAN # 4.3 (1.4-6.5); GRAN % 72.7 % (42.2-75.2); HEMATOCRIT 38.7 % (37.0-47.0); HEMOGLOBIN 11.4 g/dl (12.5-16.0); LYMPH # 1.2 (1.2-3.4); LYMPH % 20.8 % (20.0-51.0); MEAN CELL VOLUME 72 fl (80.0-100.0); MEAN CORPUSCULAR HEMOGLOBIN 21 pg (27.0-31.0); MEAN CORPUSCULAR HGB CONC 30 g/dl (33.0-37.0); MEAN PLATELET VOLUME 8.9 fl (7.4-10.4); MONO # 0.3 (0.1-0.6); MONO % 5.6 % (1.7-9.3); PLATELET COUNT 210 K/mm3 (130-400); RED BLOOD COUNT 5.39 M/mm3 (4.10-5.30); REDCELL DISTRIBUTION WIDTH-CV 18.8 % (11.5-14.5); WHITE BLOOD COUNT 5.9 K/mm3 (4.8-10.8)
[2017-01-29 16:33] LABS: ADJUSTED CALCIUM 9.7 mg/dL (8.4-10.2); ALANINE AMINOTRANSFERASE 29 U/L (9-52); ALKALINE PHOSPHATASE 77 U/L (50-136); ANION GAP 11 mmol/L (7-16); BILIRUBIN,TOTAL 0.4 mg/dL (0.0-1.0); BLOOD UREA NITROGEN 11 mg/dL (7-17); C-REACTIVE PROTEIN 0.6 mg/dL (0.0-0.9); CALCIUM 9.7 mg/dL (8.4-10.2); CARBON DIOXIDE 24 mmol/L (22-30); CHLORIDE 105 mmol/L (98-107); CREATININE, serum 0.99 mg/dL (0.52-1.25); GLUCOSE 259 mg/dL (74-106); LIPASE 443 U/L (23-300); POTASSIUM 4.5 mmol/L (3.4-5.0); SODIUM 139 mmol/L (137-145); TOTAL PROTEIN 7.2 gm/dL (6.4-8.2)
[2017-01-29 16:43] LABS: B-TYPE NATRIURETIC PEPTIDE 36 pg/mL (0-125)
[2017-01-29 16:45] LABS: TROPONIN-I < 0.012 ng/mL (0.000-0.034)
[2017-01-29 17:03] VITALS: BP 134/86; PULSE 86
== END 2017-01-29 17:03 | disposition home or self-care (01) ==
LOC: COL.ER 15:28
PROVIDERS: Emergency Medicine
DX: R09.1 Pleurisy (principal); G89.29 Other chronic pain; I10 Essential (primary) hypertension; E11.9 Type 2 diabetes mellitus without complications; E78.5 Hyperlipidemia, unspecified; J44.9 Chronic obstructive pulmonary disease, unspecified; K21.9 Gastro-esophageal reflux disease without esophagitis; Z79.84 Long term (current) use of oral hypoglycemic drugs; Z79.4 Long term (current) use of insulin; Z87.891 Personal history of nicotine dependence
CPT/HCPCS: J1170; J2550

== ENCOUNTER 2017-01-31 22:16 | Emergency (ER) | payer MEDICARE, MEDICAID ==
[~2017-01-31] VITALS: Ht 157.5 cm; Wt 81.8 kg
[2017-01-31 22:19] VITALS: TEMP 98.2
[2017-02-01 05:01] LABS: BASO % 0.1 % (0.0-2.0); GRAN # 5.1 (1.4-6.5); GRAN % 59.1 % (42.2-75.2); HEMATOCRIT 38.9 % (37.0-47.0); LYMPH # 2.7 (1.2-3.4); LYMPH % 31.6 % (20.0-51.0); MEAN CELL VOLUME 71 fl (80.0-100.0); MEAN CORPUSCULAR HEMOGLOBIN 21 pg (27.0-31.0); MEAN CORPUSCULAR HGB CONC 30 g/dl (33.0-37.0); MEAN PLATELET VOLUME 9.4 fl (7.4-10.4); MONO # 0.6 (0.1-0.6); MONO % 7.3 % (1.7-9.3); PLATELET COUNT 216 K/mm3 (130-400); RED BLOOD COUNT 5.46 M/mm3 (4.10-5.30); REDCELL DISTRIBUTION WIDTH-CV 19.3 % (11.5-14.5); WHITE BLOOD COUNT 8.6 K/mm3 (4.8-10.8)
[2017-02-01 05:07] LABS: HEMOGLOBIN 11.5 g/dl (12.5-16.0)
[2017-02-01 05:08] LABS: INR 1.1 (0.8-3.0); PROTHROMBIN TIME 11.7 SECONDS (9.7-12.8)
[2017-02-01 05:12] LABS: ADJUSTED CALCIUM 10.3 mg/dL (8.4-10.2); ALANINE AMINOTRANSFERASE 31 U/L (9-52); ALBUMIN 3.9 gm/dL (3.5-5.0); ALKALINE PHOSPHATASE 82 U/L (50-136); ANION GAP 10 mmol/L (7-16); BILIRUBIN,TOTAL 0.4 mg/dL (0.0-1.0); BLOOD UREA NITROGEN 10 mg/dL (7-17); CALCIUM 10.2 mg/dL (8.4-10.2); CARBON DIOXIDE 22 mmol/L (22-30); CHLORIDE 107 mmol/L (98-107); CREATININE, serum 0.74 mg/dL (0.52-1.25); GLUCOSE 144 mg/dL (74-106); LIPASE 431 U/L (23-300); SODIUM 140 mmol/L (137-145); TOTAL PROTEIN 7.1 gm/dL (6.4-8.2)
[2017-02-01 05:24] LABS: TROPONIN-I < 0.012 ng/mL (0.000-0.034)
[2017-02-01 06:25] VITALS: BP 136/80; PULSE 86
== END 2017-02-01 06:26 | disposition home or self-care (01) ==
LOC: COL.ER 22:16
PROVIDERS: Emergency Medicine
DX: R07.89 Other chest pain (principal); E11.9 Type 2 diabetes mellitus without complications; I10 Essential (primary) hypertension; E78.5 Hyperlipidemia, unspecified; F17.210 Nicotine dependence, cigarettes, uncomplicated; Z79.4 Long term (current) use of insulin; Z79.84 Long term (current) use of oral hypoglycemic drugs; Z82.49 Family history of ischemic heart disease and other diseases of the circulatory system

== ENCOUNTER 2017-02-03 02:32 | Emergency (ER) | payer MEDICARE, MEDICAID ==
[~2017-02-03] VITALS: Ht 154.9 cm; Wt 85.0 kg
[2017-02-03 02:34] VITALS: TEMP 98
[2017-02-03] MEDS ORDERED: PHENERGAN 25 TA25 MG PO (03:28)
[2017-02-03 04:39] VITALS: BP 159/67; PULSE 79
== END 2017-02-03 04:43 | disposition home or self-care (01) ==
LOC: COL.ER 02:32
DX: R11.10 Vomiting, unspecified (principal); R19.7 Diarrhea, unspecified; Z79.84 Long term (current) use of oral hypoglycemic drugs; Z79.4 Long term (current) use of insulin
CPT/HCPCS: J1200; J2550; J7030

== ENCOUNTER 2017-02-07 16:43 | Emergency (ER) | payer MEDICARE, MEDICAID ==
[~2017-02-07] VITALS: Ht 154.9 cm; Wt 81.8 kg
[2017-02-07 16:46] VITALS: BP 131/81; TEMP 97.7
[2017-02-07 18:10] VITALS: PULSE 77
== END 2017-02-07 18:10 | disposition home or self-care (01) ==
LOC: COL.ER 16:43
DX: R51 Headache (principal); E11.9 Type 2 diabetes mellitus without complications; Z79.4 Long term (current) use of insulin; I10 Essential (primary) hypertension; E78.00 Pure hypercholesterolemia, unspecified
CPT/HCPCS: J1200; J2550

== ENCOUNTER 2017-02-26 18:31 | Emergency (ER) | payer MEDICARE, MEDICAID ==
[~2017-02-26] VITALS: Ht 154.9 cm; Wt 80.5 kg
[2017-02-26 18:33] VITALS: TEMP 98.4
[2017-02-26 19:32] LABS: GRAN # 3.4 (1.4-6.5); GRAN % 66.3 % (42.2-75.2); LYMPH # 1.3 (1.2-3.4); LYMPH % 25.5 % (20.0-51.0); MEAN CORPUSCULAR HGB CONC 31 g/dl (33.0-37.0); MEAN PLATELET VOLUME 8.7 fl (7.4-10.4); MONO # 0.4 (0.1-0.6); MONO % 7.4 % (1.7-9.3); PLATELET COUNT 183 K/mm3 (130-400); RED BLOOD COUNT 5.09 M/mm3 (4.10-5.30); REDCELL DISTRIBUTION WIDTH-CV 17.1 % (11.5-14.5); WHITE BLOOD COUNT 5.1 K/mm3 (4.8-10.8)
[2017-02-26 19:33] LABS: PH 7 (5-8); SQUAMOUS EPITHELIAL None Seen /hpf; URINE APPEARANCE Clear; URINE BACTERIA None Seen /hpf; URINE BILIRUBIN Negative (NEGATIVE); URINE BLOOD Negative (NEGATIVE); URINE COLOR Straw; URINE GLUCOSE 3+ (NEGATIVE); URINE KETONE Negative (NEGATIVE); URINE RBC 0-2 /hpf; URINE UROBILINOGEN Negative (NEGATIVE); URINE WBC 0-2 /hpf
[2017-02-26 19:40] LABS: HEMATOCRIT 36.2 % (37.0-47.0); HEMOGLOBIN 11.3 g/dl (12.5-16.0); MEAN CORPUSCULAR HEMOGLOBIN 22 pg (27.0-31.0)
[2017-02-26 19:41] LABS: ADJUSTED CALCIUM 9.6 mg/dL (8.4-10.2); ALANINE AMINOTRANSFERASE 24 U/L (9-52); ALBUMIN 4.1 gm/dL (3.5-5.0); ALKALINE PHOSPHATASE 88 U/L (50-136); ANION GAP 12 mmol/L (7-16); BILIRUBIN,TOTAL 0.4 mg/dL (0.0-1.0); BLOOD UREA NITROGEN 12 mg/dL (7-17); C-REACTIVE PROTEIN 0.6 mg/dL (0.0-0.9); CALCIUM 9.7 mg/dL (8.4-10.2); CARBON DIOXIDE 24 mmol/L (22-30); CHLORIDE 102 mmol/L (98-107); GLUCOSE 153 mg/dL (74-106); LIPASE 273 U/L (23-300); MEAN CELL VOLUME 71 fl (80.0-100.0); POTASSIUM 3.9 mmol/L (3.4-5.0); SODIUM 138 mmol/L (137-145); TOTAL PROTEIN 7.2 gm/dL (6.4-8.2)
[2017-02-26 19:50] LABS: TROPONIN-I < 0.012 ng/mL (0.000-0.034)
[2017-02-26 20:17] VITALS: BP 139/99; PULSE 80
== END 2017-02-26 20:21 | disposition home or self-care (01) ==
LOC: COL.ER 18:31
PROVIDERS: Emergency Medicine
DX: R10.11 Right upper quadrant pain (principal); R10.13 Epigastric pain; K21.9 Gastro-esophageal reflux disease without esophagitis; E11.9 Type 2 diabetes mellitus without complications; I10 Essential (primary) hypertension; F17.210 Nicotine dependence, cigarettes, uncomplicated; Z79.4 Long term (current) use of insulin; Z90.49 Acquired absence of other specified parts of digestive tract; Z90.89 Acquired absence of other organs
CPT/HCPCS: J1170; J2550

== ENCOUNTER 2017-02-27 19:54 | Emergency (ER) | payer MEDICARE, MEDICAID ==
[~2017-02-27] VITALS: Ht 154.9 cm; Wt 80.5 kg
[2017-02-27 20:10] VITALS: BP 156/82; PULSE 83; TEMP 98
[2017-02-27 21:13] LABS: BASO % 0.1 % (0.0-2.0); GRAN # 4.7 (1.4-6.5); GRAN % 69.5 % (42.2-75.2); HEMATOCRIT 39.6 % (37.0-47.0); HEMOGLOBIN 12.2 g/dl (12.5-16.0); LYMPH # 1.6 (1.2-3.4); LYMPH % 23.7 % (20.0-51.0); MEAN CELL VOLUME 71 fl (80.0-100.0); MEAN CORPUSCULAR HEMOGLOBIN 22 pg (27.0-31.0); MEAN CORPUSCULAR HGB CONC 31 g/dl (33.0-37.0); MEAN PLATELET VOLUME 8.8 fl (7.4-10.4); MONO # 0.4 (0.1-0.6); MONO % 5.8 % (1.7-9.3); PLATELET COUNT 196 K/mm3 (130-400); RED BLOOD COUNT 5.57 M/mm3 (4.10-5.30); REDCELL DISTRIBUTION WIDTH-CV 17.2 % (11.5-14.5); WHITE BLOOD COUNT 6.8 K/mm3 (4.8-10.8)
[2017-02-27 21:27] LABS: ADJUSTED CALCIUM 9.9 mg/dL (8.4-10.2); ALBUMIN 4.1 gm/dL (3.5-5.0); BILIRUBIN,TOTAL 0.4 mg/dL (0.0-1.0); C-REACTIVE PROTEIN 0.6 mg/dL (0.0-0.9); CREATININE, serum 0.89 mg/dL (0.52-1.25); POTASSIUM 3.9 mmol/L (3.4-5.0); TOTAL PROTEIN 7.4 gm/dL (6.4-8.2)
== END 2017-02-27 22:06 | disposition home or self-care (01) ==
LOC: COL.ER 19:54
PROVIDERS: Family Medicine
DX: R10.11 Right upper quadrant pain (principal); Z87.891 Personal history of nicotine dependence; Z83.79 Family history of other diseases of the digestive system; Z90.49 Acquired absence of other specified parts of digestive tract
CPT/HCPCS: J2550

== ENCOUNTER 2017-03-03 18:58 | Emergency (ER) | payer MEDICARE, MEDICAID ==
[~2017-03-03] VITALS: Ht 154.9 cm; Wt 80.9 kg
[2017-03-03 19:05] VITALS: BP 153/80; TEMP 98.2
[2017-03-03 20:35] VITALS: PULSE 91
== END 2017-03-03 20:35 | disposition home or self-care (01) ==
LOC: COL.ER 18:58
DX: R07.89 Other chest pain (principal); E11.9 Type 2 diabetes mellitus without complications; I10 Essential (primary) hypertension; J45.909 Unspecified asthma, uncomplicated; Z79.4 Long term (current) use of insulin

== ENCOUNTER 2017-03-05 20:59 | Emergency (ER) | payer MEDICARE, MEDICAID ==
[~2017-03-05] VITALS: Ht 154.9 cm; Wt 81.8 kg
[2017-03-05 21:04] VITALS: BP 148/82; TEMP 98.1
[2017-03-05 21:48] LABS: COLLECTION METHOD CLEAN CATCH
[2017-03-05 22:00] LABS: PH 7 (5-8); SQUAMOUS EPITHELIAL 0-2 /hpf; URINE APPEARANCE Clear; URINE BACTERIA None Seen /hpf; URINE BILIRUBIN Negative (NEGATIVE); URINE BLOOD Negative (NEGATIVE); URINE COLOR Yellow; URINE GLUCOSE 3+ (NEGATIVE); URINE KETONE Negative (NEGATIVE); URINE LEUKOCYTE ESTERASE Negative (NEGATIVE); URINE PROTEIN(semi-quant) Negative (NEGATIVE); URINE RBC 0-2 /hpf
[2017-03-05] MEDS ORDERED: PHENERGAN 25 TA25 MG PO (22:53)
[2017-03-05 23:05] VITALS: PULSE 80
== END 2017-03-05 23:06 | disposition home or self-care (01) ==
LOC: COL.ER 20:59
PROVIDERS: Emergency Medicine
DX: R10.11 Right upper quadrant pain (principal); Z90.89 Acquired absence of other organs; Z98.890 Other specified postprocedural states
CPT/HCPCS: J2550

== ENCOUNTER 2017-05-06 04:46 | Emergency (ER) | payer MEDICARE, MEDICAID ==
[~2017-05-06] VITALS: Ht 157.5 cm; Wt 85.0 kg
[2017-05-06 04:49] VITALS: BP 136/77; TEMP 98
[2017-05-06] MEDS ORDERED: PHENERGAN 25 TA25 MG PO (05:36)
[2017-05-06 05:39] VITALS: PULSE 87
== END 2017-05-06 05:40 | disposition home or self-care (01) ==
LOC: COL.ER 04:46
DX: R10.11 Right upper quadrant pain (principal); E11.9 Type 2 diabetes mellitus without complications; I10 Essential (primary) hypertension; J44.9 Chronic obstructive pulmonary disease, unspecified; K21.9 Gastro-esophageal reflux disease without esophagitis; G40.909 Epilepsy, unspecified, not intractable, without status epilepticus; Z87.19 Personal history of other diseases of the digestive system; Z79.4 Long term (current) use of insulin; Z90.710 Acquired absence of both cervix and uterus; Z90.49 Acquired absence of other specified parts of digestive tract; Z90.89 Acquired absence of other organs; Z98.890 Other specified postprocedural states
CPT/HCPCS: J1170; J2550

== ENCOUNTER 2017-05-13 17:01 | Emergency (ER) | payer MEDICARE, MEDICAID ==
[~2017-05-13] VITALS: Ht 157.5 cm; Wt 83.6 kg
[~2017-05-13 17:01] MED LIST changes: -GLUCOTROL 5M5 MG/TAB PO; +GLUCOTROL10 MG PO
[2017-05-13 17:07] VITALS: TEMP 98.3
[2017-05-13 20:09] VITALS: BP 130/92; PULSE 80
== END 2017-05-13 20:09 | disposition home or self-care (01) ==
LOC: COL.ER 17:01
DX: R10.11 Right upper quadrant pain (principal); G89.29 Other chronic pain; E11.9 Type 2 diabetes mellitus without complications; F17.210 Nicotine dependence, cigarettes, uncomplicated; Z79.4 Long term (current) use of insulin
CPT/HCPCS: J1170; J2550

== ENCOUNTER 2017-05-22 02:25 | Emergency (ER) | payer MEDICARE, MEDICAID ==
[2017-05-22 02:28] VITALS: TEMP 98.1
[2017-05-22 03:05] LABS: ALANINE AMINOTRANSFERASE 31 U/L (9-52); ALBUMIN 4.4 gm/dL (3.5-5.0); ALKALINE PHOSPHATASE 96 U/L (50-136); ANION GAP 14 mmol/L (7-16); AST,SGOT 32 U/L (15-37); BILIRUBIN,TOTAL 0.4 mg/dL (0.0-1.0); BLOOD UREA NITROGEN 20 mg/dL (7-17); CALCIUM 9.7 mg/dL (8.4-10.2); CARBON DIOXIDE 25 mmol/L (22-30); CHLORIDE 102 mmol/L (98-107); GLUCOSE 289 mg/dL (74-106); LIPASE 245 U/L (23-300); POTASSIUM 3.8 mmol/L (3.4-5.0); SODIUM 141 mmol/L (137-145); TOTAL PROTEIN 7.2 gm/dL (6.4-8.2)
[2017-05-22 03:16] LABS: TROPONIN-I < 0.012 ng/mL (0.000-0.034)
[2017-05-22] MEDS ORDERED: MSIR30 MG PO (03:20)
[2017-05-22] MEDS ORDERED: REGLAN 10MG10 MG/TAB PO (04:29)
[2017-05-22 05:19] VITALS: PULSE 74
[2017-05-22 07:23] VITALS: BP 93/62
== END 2017-05-22 07:23 | disposition home or self-care (01) ==
LOC: COL.ER 02:25
PROVIDERS: Emergency Medicine
DX: E11.43 Type 2 diabetes mellitus with diabetic autonomic (poly)neuropathy (principal); K31.84 Gastroparesis; I10 Essential (primary) hypertension; J44.9 Chronic obstructive pulmonary disease, unspecified; K21.9 Gastro-esophageal reflux disease without esophagitis; Z79.4 Long term (current) use of insulin; Z98.890 Other specified postprocedural states
CPT/HCPCS: C9113; J1200; J2765; J7030

== ENCOUNTER → 2018-02-23 | Outpatient (CLI) | payer MEDICARE, MEDICAID ==
[~2018-02-23] MED LIST changes: +MSIR30 MG PO; +REGLAN 10MG10 MG/TAB PO
== END ==
LOC: COL.RAD 13:00
DX: E05.90 Thyrotoxicosis, unspecified without thyrotoxic crisis or storm (principal)
CPT/HCPCS: A9516

== ENCOUNTER → 2018-02-24 | Outpatient (CLI) | payer MEDICARE, MEDICAID | LOC: COL.RAD 13:40 | DX: E05.90 Thyrotoxicosis, unspecified without thyrotoxic crisis or storm (principal) ==

== ENCOUNTER → 2018-03-23 | Outpatient (CLI) | payer MEDICARE, MEDICAID | LOC: SUN.DIA 13:51 | DX: E11.9 Type 2 diabetes mellitus without complications (principal); E78.5 Hyperlipidemia, unspecified; I10 Essential (primary) hypertension; E66.9 Obesity, unspecified; F17.210 Nicotine dependence, cigarettes, uncomplicated | CPT/HCPCS: G0108 ==

== ENCOUNTER 2018-04-29 11:07 | Emergency (ER) | payer MEDICARE, MEDICAID ==
[~2018-04-29] VITALS: Ht 152.4 cm; Wt 72.7 kg
[2018-04-29 11:09] VITALS: TEMP 97.9
[2018-04-29 11:31] LABS: GRAN # 2.4 (1.4-6.5); GRAN % 57.1 % (42.2-75.2); HEMOGLOBIN 10.7 g/dl (12.5-16.0); LYMPH # 1.5 (1.2-3.4); LYMPH % 34.4 % (20.0-51.0); MEAN CORPUSCULAR HEMOGLOBIN 21 pg (27.0-31.0); MEAN CORPUSCULAR HGB CONC 31 g/dl (33.0-37.0); MEAN PLATELET VOLUME 9.3 fl (7.4-10.4); MONO # 0.3 (0.1-0.6); MONO % 7.8 % (1.7-9.3); PLATELET COUNT 123 K/mm3 (130-400); RED BLOOD COUNT 5.01 M/mm3 (4.10-5.30); REDCELL DISTRIBUTION WIDTH-CV 15.4 % (11.5-14.5)
[2018-04-29 11:38] LABS: ACETONE,SERUM NEGATIVE
[2018-04-29 11:39] LABS: ALANINE AMINOTRANSFERASE 28 U/L (9-52); ALBUMIN 3.4 gm/dL (3.5-5.0); ALKALINE PHOSPHATASE 97 U/L (50-136); ANION GAP 7 mmol/L (7-16); AST,SGOT 28 U/L (15-37); BILIRUBIN,TOTAL 0.5 mg/dL (0.0-1.0); BLOOD UREA NITROGEN 13 mg/dL (7-17); CALCIUM 8.8 mg/dL (8.4-10.2); CARBON DIOXIDE 27 mmol/L (22-30); CHLORIDE 100 mmol/L (98-107); CREATININE, serum 0.82 mg/dL (0.52-1.25); PHOSPHOROUS 3.7 mg/dL (2.5-4.5); POTASSIUM 4.3 mmol/L (3.4-5.0); SODIUM 134 mmol/L (137-145); TOTAL PROTEIN 6.1 gm/dL (6.4-8.2)
[2018-04-29 11:50] LABS: COLLECTION METHOD CLEAN CATCH
[2018-04-29 11:55] LABS: GLUCOSE 501 mg/dL (74-106); MAGNESIUM 0.9 mg/dL (1.6-2.3); PROLACTIN 14.9 ng/mL (3.0-18.6); TROPONIN-I < 0.012 ng/mL (0.000-0.034)
[2018-04-29 12:00] LABS: HEMATOCRIT 34.6 % (37.0-47.0); MEAN CELL VOLUME 69 fl (80.0-100.0)
[2018-04-29 12:09] LABS: PH 5 (5-8); SQUAMOUS EPITHELIAL 0-2 /hpf; URINE APPEARANCE Clear; URINE BACTERIA Rare /hpf; URINE BILIRUBIN Negative (NEGATIVE); URINE BLOOD 2+ (NEGATIVE); URINE COLOR Yellow; URINE GLUCOSE 3+ (NEGATIVE); URINE KETONE Negative (NEGATIVE); URINE LEUKOCYTE ESTERASE 1+ (NEGATIVE); URINE NITRATE Positive (NEGATIVE); URINE PROTEIN(semi-quant) Negative (NEGATIVE); URINE UROBILINOGEN Negative (NEGATIVE)
[2018-04-29 13:43] VITALS: BP 100/79; PULSE 68
== END 2018-04-29 13:50 | disposition short-term general hospital (02) ==
LOC: COL.ER 11:07
PROVIDERS: Emergency Medicine
DX: E11.65 Type 2 diabetes mellitus with hyperglycemia (principal); R55 Syncope and collapse; N39.0 Urinary tract infection, site not specified; G40.909 Epilepsy, unspecified, not intractable, without status epilepticus; I10 Essential (primary) hypertension; Z90.49 Acquired absence of other specified parts of digestive tract; Z90.89 Acquired absence of other organs; Z79.84 Long term (current) use of oral hypoglycemic drugs
CPT/HCPCS: A4216; J0696; J1815; J3475; J7030

== ENCOUNTER → 2018-09-14 | Outpatient (CLI) | payer MEDICARE, MEDICAID | LOC: COL.RAD 12:54 | DX: D17.0 Benign lipomatous neoplasm of skin and subcutaneous tissue of head, face and neck (principal) ==

== ENCOUNTER → 2018-10-05 | Outpatient (CLI) | payer MEDICARE, MEDICAID ==
[~2018-10-05] VITALS: Ht 152.4 cm; Wt 86.0 kg
[~2018-10-05] MED LIST changes: +KLONOPIN 0.5MG0.5 MG PO; +LUNESTA3 MG PO; +PAMELOR 10MG10 MG PO
[2018-10-05 13:01] VITALS: BP 128/81; PULSE 84
--- NOTE | 2018-10-05 13:45 | NUR ---
pt has been tearful since admission, states she is fearful of procedure and wants it done, has friend with her Rachana that is helpful talking to her she states she is this way before having a procedure or surgery. accucheck was 364, Mario Alberto MAZARIEGOS was not able to do sedation with this high of blood sugar. Explained to pt needs to have it under 300. Called Dr Steiner office left message on nurse machine about alean blood sugar and needing it lowered before the MRI sedation, pt states has appt with next week, asked office to call pt before, pt states does keep track of blood surgars several times a day. IV was Dc'd intact, pt was discharged with friend
--- NOTE | 2018-10-05 14:00 | NUR ---
pt and friend Rachana states the pt list of insulins have changed and she is on new meds recently to help with her blood sugars
== END ==
LOC: COL.RAD 12:21
DX: E83.42 Hypomagnesemia (principal); G40.909 Epilepsy, unspecified, not intractable, without status epilepticus; Z98.890 Other specified postprocedural states; Z53.8 Procedure and treatment not carried out for other reasons
CPT/HCPCS: J2704; J7030

== ENCOUNTER → 2018-12-13 | Outpatient (CLI) | payer MEDICARE, MEDICAID ==
[~2018-12-13] VITALS: Ht 152.4 cm; Wt 86.8 kg
[~2018-12-13] MED LIST changes: +00186-0370-20 IH; +GOOD NEIGH1200 MG/15 PO; +HUMALOG PEN100 U/ML SQ; +JANUVIA 100MG100 MG PO; +LORAINT PO; +METAMUCIL3.4 GM/Dos PO; +TYLENOL 325MG325 MG PO; +VITAMIN D 50,1.25 MG PO; +ZYPREXA 5MG5 MG PO
[2018-12-13 11:59] VITALS: BP 118/94; PULSE 89
[2018-12-13 13:42] VITALS: BP 98/68; PULSE 87
[2018-12-13 13:45] VITALS: BP 100/67; PULSE 85
[2018-12-13 13:50] VITALS: BP 111/79; PULSE 88
[2018-12-13 14:00] VITALS: BP 106/74; PULSE 84
[2018-12-13 14:15] VITALS: BP 104/77; PULSE 80
== END ==
LOC: COL.RAD 11:24
DX: E83.42 Hypomagnesemia (principal); G40.909 Epilepsy, unspecified, not intractable, without status epilepticus; Z98.890 Other specified postprocedural states
CPT/HCPCS: A9585; J2704

== ENCOUNTER → 2018-12-30 | Outpatient (CLI) | payer MEDICARE, MEDICAID | LOC: COL.CARD 09:43 | DX: E83.42 Hypomagnesemia (principal) ==